=== PATIENT | male | born 1960 | race Hispanic/Latino ===

== ENCOUNTER 2024-10-23 13:46 | Inpatient (IN) | payer OTHER ==
[~2024-10-23 13:46] MED LIST: Iopamidol-370 76% 500 ML MDV (1 ML CHARGE) ONE
[2024-10-23] MEDS ORDERED: Ondansetron PF 4 MG/2 ML Vial ONE ×2 (14:54→19:43)
[2024-10-23] MEDS ORDERED: Mag-Al 1200 mg/1200 mg/30 ML UDCUP ONE (14:54)
[2024-10-23] MEDS ORDERED: Lidocaine Viscous Sol 2% 15 ml UD Cup ONE (14:54)
[2024-10-23] MEDS ORDERED: Morphine 4 MG/ML VIAL ONE (14:59)
[2024-10-23 15:02] LABS: #Basophils 0.04 10x3/uL (0.0-0.2); %Basophils 0.4 % (0.0-1.0); %Eosinophils 0.3 % (0.0-10.0); %Lymphocytes 11.1 % (21.0-51.0); %Neutrophils 81.9 % (42.0-75.0); Hematocrit 47.3 % (42.0-52.0); Hemoglobin 16.1 g/dL (14.0-18.0); Mean Corpuscular Hemoglobin 30.2 pg (27.0-31.0); Mean Corpuscular Volume 88.7 fL (78.0-98.0); Mean Platelet Volume 9.3 fL (7.4-10.4); Platelet Count 345 10x3/uL (130-400); RBC Distribution Width 12.2 % (11.5-14.5); Red Blood Cell (RBC) Count 5.33 mill/uL (4.70-6.10)
[2024-10-23 15:23] LABS: ALT (SGPT) 11 U/L (Less than 45); AST (SGOT) 37 U/L (11-34); Albumin 4.3 g/dL (3.1-4.5); Alkaline Phosphatase 85 U/L (40-110); Anion Gap 17 mmol/L (10-20); BUN (Urea Nitrogen) 15 mg/dL (8.4-25.7); Calc. Creatinine Clearance 0 mL/min (70-130); Calcium 9.8 mg/dL (7.8-10.44); Carbon Dioxide 25 mmol/L (23-31); Chloride 104 mmol/L (98-107); Estimated GFR 84; Globulin 4.3 g/dL (2.4-3.5); Glucose 115 mg/dL (80-115); Lipase 29 U/L (8-78); Magnesium 2.3 mg/dL (1.6-2.6); Potassium 3.9 mmol/L (3.5-5.1); Protein, Total 8.6 g/dL (5.8-8.1); Sodium 142 mmol/L (136-145)
[2024-10-23] MEDS ORDERED: Acetaminophen/Codeine 30-300mg Tablet PO PRN (17:07)
[2024-10-23] MEDS ORDERED: HYDROcodone/Acetaminophen 5/325 mg Tablet PO PRN (17:07)
[2024-10-23] MEDS ORDERED: Ondansetron PF 4 MG/2 ML Vial IVP PRN (17:07)
[2024-10-23] MEDS ORDERED: Acetaminophen 325 MG TAB PO PRN (17:07)
[2024-10-23] MEDS ORDERED: Ondansetron ODT 4 MG TAB PO PRN (17:07)
[2024-10-23] MEDS ORDERED: hydrALAZINE 20 MG/ML VIAL SLOW IVP PRN (17:15)
[2024-10-23] MEDS ORDERED: PROPOFOL 20 ML ONE (17:40)
[2024-10-23] MEDS ORDERED: fentaNYL PF 100 MCG/2 ML SYRINGE ONE ×2 (17:40→19:24)
[2024-10-23] MEDS ORDERED: Rocuronium Bromide 10 MG/ML (10ML VIAL) ONE (17:41)
[2024-10-23] MEDS ORDERED: Lidocaine 1% PF 5 ML VIAL ONE (17:41)
[2024-10-23] MEDS ORDERED: EPINEPHrine 1 MG/ML VIAL ONE (17:57)
[2024-10-23] MEDS ORDERED: Bupivacaine 0.25% HCL 30 ML VIAL ONE (17:57)
[2024-10-23] MEDS ORDERED: Sodium Chloride 0.9% 100 ML ONE (18:44)
[2024-10-23] MEDS ORDERED: cefOXitin 2 GM VIAL ONE (18:44)
[2024-10-23] MEDS ORDERED: SUCCINYLCHOLINE/SOD CL,ISO/PF 200 MG/10 ML SYRINGE FS ONE (18:58)
[2024-10-23] MEDS ORDERED: Dexamethasone 20 MG/5 ML VIAL ONE (19:04)
[2024-10-23] MEDS ORDERED: PHENYLEPHRINE-NS 100 MCG/ML 10 ML SYRINGE ONE (19:05)
[2024-10-23] MEDS ORDERED: ePHEDrine Sulfate 50 MG/10 ML VIAL ONE (19:09)
[2024-10-23 19:13] LABS: Troponin I Less than 0.010 ng/mL (< 0.028)
[2024-10-23] MEDS ORDERED: SUGAMMADEX SODIUM 200 MG/2 ML VIAL ONE (19:52)
[2024-10-23] MEDS: Lactated Ringer's 1,000 ML IV SCH (21:15)
[2024-10-23] MEDS: Famotidine 20 MG TAB PO SCH (21:29)
[2024-10-23] MEDS: Famotidine/PF 20 mg/2ml Vial SLOW IVP SCH (21:30)
[2024-10-23] MEDS: Morphine 2 MG/ML VIAL SLOW IVP PRN (21:33)
[2024-10-23 23:28] VITALS: BMI 26.2
[2024-10-24 05:48] LABS: #Basophils Less than 0.03 10x3/uL (0.0-0.2); #Eosinophils Less than 0.03 10x3/uL (0.0-0.7); %Basophils 0.2 % (0.0-1.0); %Eosinophils 0.2 % (0.0-10.0); %Lymphocytes 7.6 % (21.0-51.0); %Monocytes 2.4 % (0.0-10.0); %Neutrophils 89.1 % (42.0-75.0); Hematocrit 41.6 % (42.0-52.0); Hemoglobin 13.7 g/dL (14.0-18.0); Mean Corpuscular HGB CONC 32.9 g/dL (32.0-36.0); Mean Corpuscular Hemoglobin 30.5 pg (27.0-31.0); Mean Corpuscular Volume 92.7 fL (78.0-98.0); Mean Platelet Volume 9.3 fL (7.4-10.4); Platelet Count 305 10x3/uL (130-400); RBC Distribution Width 12.4 % (11.5-14.5); Red Blood Cell (RBC) Count 4.49 mill/uL (4.70-6.10)
[2024-10-24 06:00] LABS: Anion Gap 15 mmol/L (10-20); BUN (Urea Nitrogen) 11 mg/dL (8.4-25.7); Calc. Creatinine Clearance 115 mL/min (70-130); Calcium 8.7 mg/dL (7.8-10.44); Carbon Dioxide 23 mmol/L (23-31); Chloride 109 mmol/L (98-107); Estimated GFR 101; Glucose 139 mg/dL (80-115); Potassium 4.2 mmol/L (3.5-5.1); Sodium 143 mmol/L (136-145)
[2024-10-24] MEDS ORDERED: E-Z-HD 98% W/W 340GM BOT (x-ray ONLY) ONE (08:21)
[2024-10-24] MEDS ORDERED: Barium Sulfate 96% 176 GM BOT (xray ONLY) ONE (08:21)
[2024-10-24] MEDS ORDERED: MD-Gastroview 120 ML BOT ONE (08:35)
[2024-10-25] MEDS ORDERED: PROPOFOL 20 ML ONE (11:23)
[2024-10-25] MEDS ORDERED: Lidocaine 1% PF 5 ML VIAL ONE (11:24)
[2024-10-25] MEDS ORDERED: fentaNYL PF 100 MCG/2 ML SYRINGE ONE (11:24)
[2024-10-25] MEDS ORDERED: Rocuronium Bromide 10 MG/ML (10ML VIAL) ONE (11:24)
[2024-10-25] MEDS ORDERED: PROPOFOL 60 ML ONE (11:28)
[2024-10-25] MEDS ORDERED: Bupivacaine 0.25% HCL 30 ML VIAL ONE ×2 (11:52→11:58)
[2024-10-25] MEDS ORDERED: EPINEPHrine 1 MG/ML VIAL ONE (11:52)
[2024-10-25] MEDS ORDERED: Lidocaine 2% 6 ML (Jelly) SYR ONE (11:53)
[2024-10-25] MEDS ORDERED: Midazolam HCl 2 mg/2 ml Vial ONE (11:58)
[2024-10-25] MEDS ORDERED: Dexamethasone 20 MG/5 ML VIAL ONE (11:59)
[2024-10-25] MEDS ORDERED: Ondansetron PF 4 MG/2 ML Vial ONE (11:59)
[2024-10-25] MEDS ORDERED: CEFAZOLIN 1 GM VIAL ONE (12:43)
[2024-10-25] MEDS ORDERED: ePHEDrine Sulfate 50 MG/10 ML VIAL ONE (12:43)
[2024-10-25] MEDS ORDERED: Dexmedetomidine 200 MCG/2 ML VIAL ONE (12:50)
[2024-10-25] MEDS ORDERED: Labetalol HCl 100 MG/20 ML VIAL ONE (12:57)
[2024-10-25] MEDS ORDERED: fentaNYL 50 mcg/mL 1 mL Vial ONE ×4 (13:15→15:47)
[2024-10-25] MEDS ORDERED: SUGAMMADEX SODIUM 200 MG/2 ML VIAL ONE (14:00)
[2024-10-25] MEDS ORDERED: Promethazine HCl 25 MG/ML VIAL IM PRN (15:15)
[2024-10-25] MEDS ORDERED: Ondansetron PF 4 MG/2 ML Vial IVP PRN (15:15)
[2024-10-25] MEDS ORDERED: diphenhydrAMINE 50 MG/ML VIAL IM/IV PRN (15:15)
[2024-10-25] MEDS ORDERED: diphenhydrAMINE 25 MG CAP PO PRN (15:15)
[2024-10-25] MEDS ORDERED: Naloxone HCl 0.4 mg/ml Vial IV PRN (15:15)
[2024-10-25] MEDS: Acetaminophen 500 MG TAB PO SCH (21:26)
[2024-10-26 08:44] VITALS: BP 170/94; TEMP 97.9
[2024-10-26] MEDS ORDERED: Pantoprazole 40 MG VIAL IVP SCH (09:00)
== END 2024-10-26 10:51 | disposition home or self-care (01) | DRG 328 ==
LOC: ERS 13:46 → SDC 19:33 → SURG A 19:34
PROVIDERS: ADMIT Surgery; ATTEND Surgery
PROC: 0DS64ZZ Reposition Stomach, Percutaneous Endoscopic Approach (ICD-10-PCS; principal; 2024-10-23)
PROC: 0BQT4ZZ Repair Diaphragm, Percutaneous Endoscopic Approach (ICD-10-PCS; 2024-10-23)
PROC: 0WQF0ZZ Repair Abdominal Wall, Open Approach (ICD-10-PCS; 2024-10-23)
PROC: 0BQT4ZZ Repair Diaphragm, Percutaneous Endoscopic Approach (ICD-10-PCS; 2024-10-25)
PROC: 0DV44ZZ Restriction of Esophagogastric Junction, Percutaneous Endoscopic Approach (ICD-10-PCS; 2024-10-25)
PROC: 8E0W4CZ Robotic Assisted Procedure of Trunk Region, Percutaneous Endoscopic Approach (ICD-10-PCS; 2024-10-25)
DX: K44.9 Diaphragmatic hernia without obstruction or gangrene (principal); I10 Essential (primary) hypertension; K42.9 Umbilical hernia without obstruction or gangrene; Z90.49 Acquired absence of other specified parts of digestive tract
CPT/HCPCS: 36415; 71045; 74177; 74240; 80048; 80053; 83690; 83735; 84484; 85025; 88302; 93005; 96374; 96375; A4314; J0171; J0665; J0690; J0694; J1100; J2250; J2270; J2272; J2405; J2704; J3010; J3490; J7120; Q9963; Q9967; S2900